=== PATIENT | male | born 1990 | race African-American/Black ===

== ENCOUNTER 2023-09-23 22:40 | Emergency (ER) | payer MEDICAID, OTHER ==
[~2023-09-23] VITALS: Ht 177.8 cm; Wt 77.0 kg
[2023-09-23 22:43] VITALS: TEMP 98; O2SAT 98
[2023-09-23] MEDS ORDERED: IBUP-2029 MT (23:31)
[2023-09-23] MEDS ORDERED: BO1 TP (23:31)
[2023-09-23 23:50] VITALS: BP 116/72; PULSE 68; RESP 18
[2023-09-23] MEDS: IBUPROFEN 600MG TABLET PO ONE (23:50)
[2023-09-23] MEDS: BACITRACIN ZINC OINT UDPKT TOP ONE (23:50)
[2023-09-23] MEDS: LIDOCAINE HCL/PF 1% 10 MG/ML 5ML VIAL INFIL ONE (23:50)
[2023-09-23] MEDS: TETANUS, DIPHTHERIA, PERTUSSIS VAC/PF 0.5ML (>10YR OLD) IM ONE (23:50)
== END 2023-09-24 00:14 | disposition home or self-care (01) ==
LOC: ER 22:40
DX: S51.811A Laceration without foreign body of right forearm, initial encounter (principal); X58.XXXA Exposure to other specified factors, initial encounter; Y93.89 Activity, other specified; Y92.89 Other specified places as the place of occurrence of the external cause; Y99.8 Other external cause status
CPT/HCPCS: 99283; 90715; 12002; 90471; J3490

== ENCOUNTER 2023-09-25 14:29 | Emergency (ER) | payer SELFPAY ==
[~2023-09-25] VITALS: Ht 172.7 cm; Wt 60.0 kg
[~2023-09-25 14:29] MED LIST: BO1 TP; IBUP-2029 MT
[2023-09-25 14:33] VITALS: BP 120/68; PULSE 80; RESP 19; TEMP 98.3; O2SAT 99
== END 2023-09-25 14:57 | disposition home or self-care (01) ==
LOC: ER 14:29
DX: S61.511D Laceration without foreign body of right wrist, subsequent encounter (principal); X58.XXXD Exposure to other specified factors, subsequent encounter
CPT/HCPCS: 99281

== ENCOUNTER 2023-10-15 10:10 | Emergency (ER) | payer SELFPAY ==
[~2023-10-15] VITALS: Ht 180.3 cm; Wt 64.0 kg
[2023-10-15 10:19] VITALS: BP 105/66; PULSE 64; RESP 17; TEMP 98; O2SAT 99
== END 2023-10-15 13:02 | disposition left against medical advice (07) ==
LOC: ER 10:10
DX: Z48.02 Encounter for removal of sutures (principal); Z53.21 Procedure and treatment not carried out due to patient leaving prior to being seen by health care provider
CPT/HCPCS: 99281

== ENCOUNTER 2023-10-18 09:32 | Emergency (ER) | payer SELFPAY ==
[~2023-10-18] VITALS: Ht 180.3 cm; Wt 63.0 kg
[2023-10-18 09:40] VITALS: O2SAT 100
[2023-10-18 11:07] VITALS: BP 114/60; PULSE 60; RESP 16; TEMP 98.8
== END 2023-10-18 11:08 | disposition home or self-care (01) ==
LOC: ER 09:32
DX: S41.111D Laceration without foreign body of right upper arm, subsequent encounter (principal); X58.XXXD Exposure to other specified factors, subsequent encounter
CPT/HCPCS: 99281; Z7610